=== PATIENT | male | born 1955 | race Caucasian/White ===

== ENCOUNTER 2024-11-19 11:13 | Emergency (ER) | payer OTHER | END 2024-11-19 13:45 | disposition home or self-care (01) | LOC: MW.ED 11:13 | DX: S46.912A Strain of unspecified muscle, fascia and tendon at shoulder and upper arm level, left arm, initial encounter (principal); W19.XXXA Unspecified fall, initial encounter | CPT/HCPCS: 71046; 71046-26; 73030-26-LT; 73030-LT; 99283 ==